=== PATIENT | male | born 1965 | race Caucasian/White ===

== ENCOUNTER 2016-10-02 20:41 | Emergency (ER) | payer SELFPAY ==
[2016-10-02 20:48] VITALS: BP 134/99; PULSE 118; RESP 18; O2SAT 96
--- NOTE | 2016-10-02 20:52 | EDPHY ---
H & P Time Seen by Provider: 10/02/16 20:45 HPI/ROS: CHIEF COMPLAINT: Medical clearance HISTORY OF PRESENT ILLNESS: Patient is a 51-year-old male brought in by police for medical clearance. On my evaluation the patient cooperative with my exam. (It is noted that he has intermittently yelled at staff.) He denies any medical complaints. He states his only problem is that he is handcuffed in the custody of police. REVIEW OF SYSTEMS: My complete review of systems is negative except as mentioned in the HPI. Past Medical/Surgical History: Denies Past surgical history: Orthopedic surgery Social history: The patient smokes tobacco. He denies drug use. Smoking Status: Current every day smoker Physical Exam: Vitals noted. The patient is mildly hypertensive and tachycardic. GENERAL: No acute distress, alert. HEENT: Eyes normal to inspection, normal pharynx, no signs of dehydration. NECK: No thyromegaly, no lymphadenopathy, supple. RESPIRATORY: Clear to auscultation bilaterally, no rales, rhonchi or wheezing. CVS: Regular rate and rhythm, no rubs, murmurs, or gallops. ABDOMEN: Soft, nontender, nondistended, no organomegaly. BACK: Normal to inspection, no CVA tenderness. SKIN: Normal color, no rash, warm, dry. No pallor. EXTREMITIES: No pedal edema, no calf tenderness, no Homans sign or cords, no joint swelling. NEURO/PSYCH: Alert and oriented x3, intermittently agitated, normal motor sensory exam. No obvious cranial nerve deficit. Constitutional: Initial Vital Signs Heart Rate 118 H 10/02/16 20:46 Respiratory Rate 18 10/02/16 20:46 Blood Pressure 134/99 H 10/02/16 20:46 O2 Sat (%) 96 10/02/16 20:46 O2 Delivery Mode Room Air Allergies/Adverse Reactions: No Known Allergies Allergy (Unverified 10/02/16 20:45) Home Medications: Medication Instructions Recorded NK [No Known Home Meds] 10/02/16 Medical Decision Making ED Course/Re-evaluation: In the emergencally department evaluated the patient. When I entered the room he stated I was not taking any bodily fluid from him. I told him I was there for medical screening exam. The patient consented. During my exam the patient was cooperative. However, when I left the room he started to yell. He also intermittently yelled at staff. Patient had no complaints while here. On his physical exam, he had mild tachycardia and hypertension. The patient was intermittently agitated. I feel this was attributing to his vital signs being abnormal. I do not feel he has an emergent medical condition. I discharge patient custody of police. Differential Diagnosis: My differential includes but is not limited to alcohol intoxication, agitation, drug abuse, anxiety, hypertension, hypertensive emergency, hypertensive urgency , dysrhythmia Departure - Departure Disposition: Home, Routine, Self-Care Clinical Impression: Medical clearance for incarceration Condition: Good Instructions: Normal Exam (ED)
== END 2016-10-02 21:00 | disposition home or self-care (01) ==
DX: Z02.89 Encounter for other administrative examinations (principal); F17.200 Nicotine dependence, unspecified, uncomplicated

== ENCOUNTER 2016-10-05 16:16 | Emergency (ER) | payer OTHER ==
[2016-10-05 16:21] VITALS: TEMP 98.1
[2016-10-05] MEDS ORDERED: SKIN ADHESIVE (DERMABOND) 1 EACH TP ONE ×2 (16:27)
--- NOTE | 2016-10-05 16:27 | EDPHY ---
H & P Time Seen by Provider: 10/05/16 16:22 HPI/ROS: CHIEF COMPLAINT: Forehead laceration HISTORY OF PRESENT ILLNESS: 51-year-old male with up-to-date tetanus, no anticoagulant use, [facility] showing that as he was being transferred cell see impacted his forehead against the door and sustained a laceration to his right frontal region. No loss of consciousness. No nausea or vomiting. No headache. No amnesia. PHYSICAL EXAM 1) GENERAL: Well-developed, well-nourished, alert and oriented. Appears to be in no acute distress. Answering questions appropriately. GCS 15 2) HEAD: Normocephalic, atraumatic. 2 cm well-demarcated vertically-oriented laceration right frontal region 3) HEENT: Pupils equal, round, reactive to light bilaterally. Negative Horners. Nasopharynx, oropharynx, clear. No deformity or angulation of nose. No septal hematoma. No rhinorrhea. No oral trauma. Ears bilaterally with normal tympanic membranes. No hemotympanum. No fluid or blood in the external auditory canal. No raccoon eyes. No Duarte sign. 4) NECK: No cervical collar is on. Posterior cervical spine is nontender, no stepoff, no effusion. Full range of motion which does not elicit any midline cervical spine pain, no posterior midline tenderness, no step-off. Smoking Status: Current every day smoker Constitutional: Initial Vital Signs Temperature (C) 36.7 C 10/05/16 16:20 Heart Rate 68 10/05/16 16:20 Respiratory Rate 20 10/05/16 16:20 Blood Pressure 139/87 H 10/05/16 16:20 O2 Sat (%) 94 10/05/16 16:20 O2 Delivery Mode Room Air Allergies/Adverse Reactions: No Known Allergies Allergy (Verified 10/05/16 16:20) Home Medications: Medication Instructions Recorded NK [No Known Home Meds] 10/02/16 ED Images - Head Head Front/Back: 1 - Laceration MDM/Departure - MDM Procedures: Procedure: Laceration repair with tissue adhesive Verbal consent was obtained from the patient. The 2 cm laceration on the right medial eyebrow was irrigating clean by myself. The wound was scrubbed and explored to its base with a gloved finger. No foreign body seen, no foreign bodies palpated. There were no deep structures involved. The wound was repaired with tissue adhesive. The procedure was performed by myself. Patient has been informed that scarring will occur, although every effort has been made to minimize this. Medications Given: Discontinued Medications Octyl Cyanoacrylate (Dermabond) 1 each TP EDNOW ONE Stop: 10/05/16 16:28 Last Admin: 10/05/16 16:28 Dose: 1 each ED Course/Re-evaluation: This patient has negative [place] head injury decision-making tools. I do not think that imaging indicated. His wound has been closed. Given usual customary head injury precautions instructions.Care and management in consultation with [secondary] supervising physician Dr Brown . - Depart Disposition: Home, Routine, Self-Care Clinical Impression: Forehead laceration Qualifiers: Encounter type: initial encounter Qualified Code(s): S01.81XA - Laceration without foreign body of other part of head, initial encounter Condition: Good Instructions: Laceration (ED), Skin Adhesive Care (ED) Additional Instructions: Return to the ER if you develop redness, swelling, discharge, warmth to the wound, or any other symptoms that concern you. Referrals: Follow-up, with the [facility] nurse in 24 hours [Other] - As per Instructions
[2016-10-05 16:41] VITALS: BP 124/89; PULSE 74; RESP 14; O2SAT 93
== END 2016-10-05 16:41 | disposition home or self-care (01) ==
PROC: 0HQ1XZZ Repair Face Skin, External Approach (ICD-10-PCS; principal; 2016-10-05)
DX: S01.81XA Laceration without foreign body of other part of head, initial encounter (principal); F17.200 Nicotine dependence, unspecified, uncomplicated; W22.8XXA Striking against or struck by other objects, initial encounter; Y92.143 Cell of prison as the place of occurrence of the external cause

== ENCOUNTER 2018-10-16 16:28 | Emergency (ER) | payer MEDICAID, OTHER ==
[2018-10-16 16:41] VITALS: BP 118/80
--- NOTE | 2018-10-16 17:08 | EDPHY ---
H & P Time Seen by Provider: 10/16/18 17:07 HPI/ROS: CHIEF COMPLAINT: Left eye discharge HISTORY OF PRESENT ILLNESS: 53-year-old immunocompetent male postop day 3 post left eye surgery by an vp of technology at [facility]. Patient does not remember the name of the surgeon who performed the surgery 4 days ago. PRIMARY CARE PROVIDER: REVIEW OF SYSTEMS: 10 systems reviewed and are negative with exception of illness mentioned in the history of present illness PHYSICAL EXAM (Prior to examination, patient consented to physical exam, hands were washed and my usual and customary physical exam procedures followed) 1) GENERAL: Well-developed, well-nourished, alert and oriented. Appears to be in no acute distress. 2) HEAD: Normocephalic 3) HEENT: sclera anicteric 4) LUNGS: Breathing comfortably. [5) OCULAR EXAM: Visual Acuity: With correction, right eye 20/40, left eye 20/40, both eyes 20/ 40 Pupils:equal round and reactive to light EOMI Lids: no edema or swelling, upper and lower lids were everted and no foreign bodies were visualized, no areas of increased fluorescein uptake. No discharge. Skin: no proptosis, no periorbital erythema or swelling, no vesicles, no pain with extraocular movements. Conjunctivae: injected, no discharge Anterior chamber:normal, no hyphema or hypopyon Smoking Status: Current every day smoker Constitutional: Initial Vital Signs Temperature (C) 36.7 C 10/16/18 16:39 Heart Rate 80 10/16/18 16:39 Respiratory Rate 18 10/16/18 16:39 Blood Pressure 118/80 10/16/18 16:39 O2 Sat (%) 94 10/16/18 16:39 O2 Delivery Mode Room Air Allergies/Adverse Reactions: No Known Allergies Allergy (Verified 10/16/18 16:39) Home Medications: Medication Instructions Recorded NK [No Known Home Meds] 10/02/16 MDM/Departure - [facility] ED Course/Re-evaluation: 5:17 p.m.: I Entered the room to re-examine the patient. His visual acuity. I asked the patient with the name of the surgeon as I wanted to consult with his vp of technology. He is unable to recall the name of the surgeon performed surgery 4 days ago. [employer] ([place] access reveals no records for recent surgery. He states that he would like to leave, does not want further intervention this stating,"I'll just call my surgeon in the morning" and patient walked out of the ER. I did not have the opportunity to explain AMA discharge instructions to the patient as he walked out of the ER. - Depart Disposition: Against Medical Advice Condition: Fair Referrals: ERON SHAH [Primary Care Provider] - As per Instructions
== END 2018-10-16 17:19 | disposition left against medical advice (07) ==
DX: H57.9 Unspecified disorder of eye and adnexa (principal)